=== PATIENT | male | born 1975 | race Caucasian/White ===

== ENCOUNTER 2021-03-12 00:43 | Emergency (ER) | payer OTHER ==
[2021-03-12 02:01] LABS: HEMOGLOBIN 10.8 gm/dl (14.0-17.5); RED BLOOD COUNT 4.45 M/UL (4.20-5.50); WHITE BLOOD COUNT 9.8 K/UL (4.5-11.0)
[2021-03-12 02:20] LABS: BUN/CREATININE RATIO 18 (0-10)
[2021-03-12] MEDS ORDERED: PROTONIX40 MG PO (05:03)
[2021-03-12] MEDS ORDERED: ONDANSETRON ODT4 MG SL (05:03)
[2021-03-13] MEDS ORDERED: PROTONIX 40 MG40 M1 PO (23:26)
== END 2021-03-12 07:12 | disposition home or self-care (01) ==
LOC: ER1 00:43
PROVIDERS: Physician Assistant
DX: K20.90 Esophagitis, unspecified without bleeding (principal); K76.0 Fatty (change of) liver, not elsewhere classified; K44.9 Diaphragmatic hernia without obstruction or gangrene; N20.0 Calculus of kidney; Z88.0 Allergy status to penicillin; F17.200 Nicotine dependence, unspecified, uncomplicated
CPT/HCPCS: 80053; 83690; 85025; 93005; 96374; 99284; C9113; Q9967

== ENCOUNTER 2021-03-13 22:14 | Emergency (ER) | payer OTHER ==
[~2021-03-13 22:14] MED LIST: ONDANSETRON ODT4 MG SL; PROTONIX40 MG PO
[2021-03-13] MEDS ORDERED: PROTONIX 40 MG40 M1 PO (23:26)
== END 2021-03-13 23:38 | disposition home or self-care (01) ==
LOC: ER1 22:14
DX: K21.00 Gastro-esophageal reflux disease with esophagitis, without bleeding (principal)
CPT/HCPCS: 99284